=== PATIENT | female | born 1970 | race Caucasian/White ===

== ENCOUNTER 2022-02-26 12:07 | Outpatient (CLI) | payer BC, SELFPAY ==
--- NOTE | 2022-02-26 11:00 | DI.RAD_ITS ---
Exam(s) XR ELBOW RT COMPLETE EXAM: XR ELBOW RT COMPLETE CLINICAL HISTORY: RIGHT ELBOW F/U. TECHNIQUE: 2D digital imaging was performed. COMPARISON: No exams were available for comparison FINDINGS: Two views (AP and lateral) There is no evidence of fracture or joint effusion on this two view study. There is no swelling of t he olecranon bursa. Radial head and capitellum appear unremarkable. No obvious degenerative changes . Epicondyles appear unremarkable. Bone density is normal. No osseous lesions. There is no radiop aque foreign body. IMPRESSION: No significant radiograph findings in the right elbow on this two view study DATA REPOSITORY: RADIATION DOSE DELIVERED:
== END 2022-02-26 12:08 | disposition home or self-care (01) ==
LOC: DIORS 12:08
PROVIDERS: PCP Family Medicine; Referring Provider Family Medicine; Visit Provider Student in an Organized Health Care Education/Training Program
DX: M25.521 Pain in right elbow; M77.11 Lateral epicondylitis, right elbow
CPT/HCPCS: 73080

== ENCOUNTER 2022-04-02 02:56 | Outpatient (CLI) | payer BC, SELFPAY ==
[2022-04-02 11:24] LABS: Source Nasal/Nares
[2022-04-03 05:39] LABS: COVID-19 PCR Negative (Negative)
== END 2022-04-02 02:57 | disposition home or self-care (01) ==
PROVIDERS: PCP Family Medicine; Visit Provider Student in an Organized Health Care Education/Training Program
DX: Z20.822 Contact with and (suspected) exposure to COVID-19 (principal); Z01.818 Encounter for other preprocedural examination
CPT/HCPCS: 87635

== ENCOUNTER 2022-04-04 07:24 | Day surgery (SDC) | payer BC, SELFPAY ==
[2022-04-04] VITALS (9 sets, daily range): BP systolic 91–135; BP diastolic 41–90; PULSE 53–97; RESP 15–20; TEMP 36.1–36.7; O2SAT 96–100; BMI 28.1
[2022-04-04] MEDS: Lactated Ringers 1,000 ML 30 ML IV (07:55)
--- NOTE | 2022-04-04 08:39 | W.ANESPRE ---
General Info Date of Service Date Performed: 04/04/22 Height: 5 ft 2 in Weight: 69.8 kg Body Mass Index (BMI): 28.1 Surgical Procedure: Operation Date: 04/04/22 12:20 Proposed Procedure Side Surgeon p Elbow Arthroscopy w/Debridement Lateral Epicondylitis Right Kiran Harry MD Meds Allergies and Home Medications Allergies Allergy/AdvReac Type Severity Reaction Status Date / Time No Known Allergies Allergy Verified 04/04/22 07:47 Home Medication Medication Instructions Recorded galcanezumab-gnlm 120 mg/mL 120 mg subcut QMONTH 04/30/21 subcutaneous pen injector (Emgality Pen) Current Visit Medications: Current Medications Generic Name Dose Route Start Last Admin Trade Name Freq PRN Reason Stop Dose Admin Ringer's Solution 1,000 mls @ 30 mls/hr 04/04/22 06:00 04/04/22 07:55 IV 05/03/22 23:59 30 mls/hr INFUSION OC Administration Cefazolin Sodium/Dextrose 2 gm in 50 mls @ 100 mls/hr 04/04/22 06:00 Ancef Duplex IVPB 04/04/22 16:00 PREOP OC IV Miscellaneous Supplies 1 each 04/04/22 06:00 Iv Access IV 05/03/22 23:59 DIRECTED OC Sodium Chloride 0 ml 04/04/22 06:00 Normal Saline Flush 10 Ml Syr IV 05/03/22 23:59 PRN PRN Sodium Chloride 0 ml 04/04/22 06:00 Normal Saline 10 Ml Vial IJ 05/03/22 23:59 DIRECTED PRN Sterile Water 0 ml 04/04/22 06:00 Water,Injection,Sterile 10 Ml Vial IJ 05/03/22 23:59 DIRECTED PRN PFSH Active Problems Active Problems: Problem Status Onset Code Lateral epicondylitis, right elbow M77.11 No-show for appointment Z53.29 Medical History Medical History Migraine Medical History Comments:: Pt. stated she has a hard time regulating her body temperature coming out of anesthesia Surgical History Surgical History History of back surgery L3-S1 surgery Hx of hysterectomy Tobacco Smoking/Tobacco Use Status: Former Tobacco Use Alcohol Alcohol Intake: current Alcohol intake frequency: a few times a week Alcohol type: beer Substance Use Substance use: Never Substance use type: does not use Vital Signs and Lab Results Vital Signs Most Recent Vital Signs in EMR: Most Recent Vital Signs Temp Pulse Resp BP Pulse Ox 36.7 C 62 19 135/90 100 04/04/22 07:39 04/04/22 07:39 04/04/22 07:39 04/04/22 07:39 04/04/22 07:39 Lab Results Blood Type / Crossmatch: No Data to Display Complete Blood Count: No Data to Display Complete Metabolic Panel: No Data to Display Liver Function Panel: No Data to Display Coagulation Panel: No Data to Display Cardiac Panel: No Data to Display Arterial Blood Gas: No Data to Display Venous Blood Gas: No Data to Display Pancreas Panel: No Data to Display Thyroid Panel: No Data to Display Infectious Disease: Coronavirus (COVID-19)(PCR) Negative (Negative) 04/02/22 09:02 Coronavirus 2019 Source Nasal/Nares 04/02/22 09:02 Blood Cultures: No Data to Display Toxicology Panel: No Data to Display Panel: No Data to Display Anesthesia Assessment and Plan Anesthesia History Personal History: No History of Anesthesia Complications Family History: No Family History of Anesthesia Complications Exercise Tolerance Exercise Tolerance: Metabolic Equivalents>4 Pertinent Negatives Pertinent Negatives: No Symptoms of GERD, No Major Cardiovascular Symptoms or Complaints, No Major Pulmonary Symptoms or Complaints and No History of CVA/TIA Cardiac & Pulmonary Exam Cardiac Exam: Normal S1/S2 Heart Sounds Pulmonary Exam: Clear Bilateral Breath Sounds Implantable Cardiac Device Does patient have a Pacemaker or an ICD?: No Airway Exam Known Difficult Airway: No Mallampati Class: 2 Mouth Opening: Normal (> 3cm) Thyromental Distance: Greater than 3 cm Neck Range of Motion: Full ROM Neck Circumference: Normal Teeth Condition: Normal Dentition ASA Classification ASA Score: ASA 2 Emergency Case?: No NPO Status NPO Status: NPO Clears >2 hours, Solids >8 hours Status Status: History of Hysterectomy Anesthesia Plan Resuscitation Status: Full Code Anesthesia Technique: General Anesthesia Airway Planned: Endotracheal Tube Pain Management: Surgeon and patient request nerve block Monitors Used: Standard Monitors
--- NOTE | 2022-04-04 09:38 | W.ANESNERVE ---
Nerve Block Single Injection Procedure Date and Time Date Performed: 04/04/22 Procedure Start: 09:32 Location Where Procedure Performed Procedure Location: Day Surgery Unit Reason Performed: Postoperative Analgesia Requesting Provider: Kiran Harry Timeout Performed Timeout Performed: Yes Monitoring Used ECG, Blood Pressure, SpO2, ETCO2 and See EMR for corresponding vital signs Sterility Sterility: Hand Hygiene, Surgical Cap, Surgical Mask, Sterile Gloves, Sterile Drape/Sheet and Chlorhexidine Sedation Given During Procedure Sedation Given (Indicate Dose Given): Versed IV Dose:: 2 mg Patient Mental Status Patient Mental Status: Sedate with meaningful communication Nerve Block 1st Nerve Block: Laterality: Right Block Type: Supraclavicular Needle / Catheter Used: 100mm SonoPlex II Local Anesthetic Bolus (Indicate Dose Given): Lidocaine used for local infiltration of skin, Injected in 3-5ml increments after negative blood aspiration and Bupivacaine 0.5% Dose:: 15 ml Additives (Indicate Dose Given): Precedex Dose:: 70 mcg Ultrasound: Sterile probe cover and gel used Ultrasound Image Saved?: Yes Nerve Stimulator: Not Used Paresthesia: None Procedure Tolerated: No Complications and Patient tolerated well Procedure Outcome: Successful Performed By: Chelle Ramos
[2022-04-04] MEDS: ceFAZolin 2 GM/50 ML BAG IVPB (11:30)
[2022-04-04] MEDS: EPINEPHrine 30 MG/30 ML VIAL (12:02)
[2022-04-04] MEDS: Bupivacaine 0.5% Pres-Free W/EPI 10 ML VIAL (12:36)
--- NOTE | 2022-04-04 12:47 | W.PM.DSUDISC ---
Discharge Plan Disposition Patient Disposition: HOME Condition: Stable Discharge Details Reason For Visit: Right elbow surgery Attending Provider: Kiran Harry Primary Care Provider: Teresa You Home Meds and New Rx's Prescriptions: New naproxen 250 mg tablet 250 - 500 mg PO BID PRNQty: 30 0RF Rx Instructions: take with a meal oxycodone 5 mg tablet 5 - 10 mg PO Q4H MDD 30 mg PRN (Reason: moderate to severe pain) Qty: 12 0RF aspirin 81 mg tablet,delayed release (DR/EC) 81 mg PO DAILY 7 Days Qty: 7 0RF Continued Emgality Pen 120 mg/mL pen injector 120 mg subcut QMONTH Discharge Instructions Additional Instructions: Surgery: Right elbow arthroscopy with debridement lateral epicondylitis Activity: Weightbearing as tolerated. Advance range of motion as comfort allows. Important to restore full elbow extension as soon as possible. Recommend avoiding repetitive activities and heavy lifting for 6-8 weeks. A physical therapy prescription will be sent electronically to start in 2 to 3 weeks. Prescriptions: Aspirin 81 mg take 1 daily to prevent a blood clot for 7 days Naproxen 250 mg take 1-2 every 12 hours with a meal as needed for moderate pain Oxycodone 5 mg take 1-2 every 4-6 hours as needed for severe pain You may use ssqu-ilk-[id number] Tylenol (acetaminophen) as needed for mild pain. These pain medications may be taken all at once or in different combinations as needed. Also, recommend Colace (docusate) as a stool softener as surgery and pain medicine cause constipation. You may try [id number]-gdj-[id number] diphenhydramine (Benadryl) 25-50 mg nightly as a sleep aid Dressings: Leave dressing in place for 3 days. May then remove and leave open to air or cover incisions with Band-Aids. May shower after 5 days. Follow-up: 10-[address] Harry Let us know right away if you develop any redness, drainage, fevers, chest pain, or trouble breathing. Do not drink alcohol or drive for at least 24 hours after anesthesia. Please call the office during business hours with any questions or concerns. Discharge Orders Discharge Orders: Discharge Order (Routine); Ordered 04/04/22 Ordered By: Kiran Harry DS: Diagnosis Discharge Diagnosis (1) Lateral epicondylitis, right elbow: Status: Acute
--- NOTE | 2022-04-04 12:48 | ROE_ITS ---
Operative Note Operative Note DATE OF PROCEDURE: 04/04/22 PRE-OP DIAGNOSIS: Right elbow lateral epicondylitis POST-OP DIAGNOSIS: same PROCEDURE: Right elbow arthroscopy with debridement lateral epicondylitis, CPT # 24441 SURGEON: Kiran Harry RESIDENT SERVICES SUPERVISOR: None None ANESTHESIA TYPE: General LMA/ETT and Primary Nerve Block Refer to Anesthesia Record Patient was transported to: PACU Indications: Please see complete medical record for details. Findings: Mild anterior and lateral synovitis. Intact cartilaginous surfaces. Thickened ECRB and to a lesser extent ECRL. Procedure Description: In the operating room, general anesthesia was induced. The patient was positioned lateral on the operating room table. All bony prominences were well- padded. Preoperative antibiotics were administered. The elbow was prepped and draped in the usual sterile fashion. The correct patient, procedure, and side of the procedure were all verified prior to incision. 20 cc of normal saline was used to insufflate the right elbow joint through the lateral soft spot. The jaron and spread technique was used to establish the proximal anteromedial portal. A diagnostic arthroscopy of the anterior elbow compartment was performed with findings noted above. A 18-gauge needle needle was used to localize a modified direct lateral working portal for lateral epicondyle and common extensor origin debridement. The needle was used to set the superior and inferior margins of the resection as well as free up disease tissue from its bony origin. A scalpel was used to jaron the skin followed by [place] blade to meticulously release the ECRB[ as well as adjacent ECRL tendon from the lateral epicondyle]. Care was taken to work anterior to the midline of the radial head to preserve the radial collateral ligament. A 3.5 mm shaver was used to debride approximately 1 cm of diseased tendon and lightly abrade lateral epicondyle bony origin. Shaver was also used to remove the small amount of lateral and anterior synovitis. The elbow was drained of arthroscopic fluid. The medial and lateral portals were closed using 3-0 Monocryl in a buried interrupted fashion. Incisions covered with Steri-Strips. Xeroform pieces were applied over both incisions and covered with dry 4 x 4 gauze. The radial pulse was 2+. The elbow was gently compressed with marci bandage. The patient awoke from anesthesia without complication and was transferred to the recovery room in stable fashion.
--- NOTE | 2022-04-04 13:24 | W.ANESPOSTOP ---
Postoperative Evaluation Date, Time and Location Date Performed: 04/04/22 Time Performed: 13:12 Patient Location: PACU Vital Signs Most Recent Imported Vital Signs: Most Recent Vital Signs Temp Pulse Resp BP Pulse Ox 36.4 C L 68 15 103/61 96 04/04/22 13:07 04/04/22 13:07 04/04/22 13:07 04/04/22 13:07 04/04/22 13:07 Pain Score Most Recent Pain Score: Most Recent Pain Score Pain Level 0 04/04/22 13:07 Assessment Mental Status: Awake (Alert & Oriented to Patient Baseline) Airway and Respiratory Function: Patent airway with normal (patient baseline) respiratory exam Cardiovascular Function: Hemodynamically Stable Hydration Status: Adequately Hydrated Nausea & Vomiting: No Nausea or Vomiting Pain: Pt. Denies Any Pain Peripheral Nerve Block: Regional nerve block not resolved at time of post operative discharge
== END 2022-04-04 14:10 | disposition home or self-care (01) ==
PROVIDERS: PCP Family Medicine; Visit Provider Student in an Organized Health Care Education/Training Program
PROC: (CPT 29830; principal; 2022-04-04 12:00)
DX: M77.11 Lateral epicondylitis, right elbow (principal)
CPT/HCPCS: 29837; 76942; J0690; J1100; J1885; J2250; J2405

== ENCOUNTER 2023-04-18 08:43 | Outpatient (CLI) | payer BC, SELFPAY ==
--- NOTE | 2023-04-18 08:00 | DI.RAD_ITS ---
Exam(s) XR KNEE RT 4V AP,LAT,SMITH,PAT EXAM: XR KNEE RT 4V AP,LAT,SMITH,PAT CLINICAL HISTORY: RIGHT KNEE PAIN. TECHNIQUE: 2D digital imaging was performed. Four views. COMPARISON: No exams were available for comparison FINDINGS: BONES: No acute fracture is present. No bony destructive lesion is seen. JOINTS: The knee is normally aligned. No joint effusion is seen. The joint spaces are maintained. No significant periarticular spurring. SOFT TISSUE: Normal. IMPRESSION: Unremarkable radiographs of the right knee. DATA REPOSITORY: RADIATION DOSE DELIVERED:
== END 2023-04-18 08:44 | disposition home or self-care (01) ==
LOC: DIORS 08:44
PROVIDERS: PCP Family Medicine; Referring Provider Family Medicine; Visit Provider Physician Assistant
DX: M25.561 Pain in right knee (principal)
CPT/HCPCS: 73564

== ENCOUNTER 2023-11-07 10:47 | Day surgery (SDC) | payer BC, SELFPAY ==
[2023-11-07] VITALS (10 sets, daily range): BP systolic 139–167; BP diastolic 78–118; PULSE 68–89; RESP 16–20; TEMP 36.4–37; O2SAT 96–100; BMI 28.7
--- NOTE | 2023-11-07 07:27 | W.PM.DSUDISC ---
Date of service: 11/07/23 Time of Service: 14:00 Discharge Plan Disposition Patient Disposition: Home Condition: Stable Discharge Details Attending Provider: Kiran Harry Primary Care Provider: [place] Home Meds and New Rx's Prescriptions: New aspirin 81 mg capsule 81 mg PO DAILY 14 Days Qty: 14 0RF naproxen 250 mg tablet 250 - 500 mg PO BID PRN (Reason: moderate pain and swelling) Qty: 40 0RF oxycodone 5 mg tablet 5 - 10 mg PO .q4-6h PRN (Reason: severe pain) Qty: 5 0RF Continued Emgality Pen 120 mg/mL pen injector 120 mg subcut QMONTH sennosides-docusate sodium [Senokot-S] 8.6-50 mg tablet 1 tab-cap PO QHS Discharge Instructions Additional Instructions: Surgery: Right knee arthroscopy with medial meniscus root repair and trochlear chondroplasty Activity: Toe-touch weightbearing with crutches for 6 weeks followed by progressive weightbearing with crutches another 2 weeks. Seated/ non-weight bearing flexion 0-90 degrees maximum for 6 weeks. 120 degrees maximum flexion for 8 weeks. Spin/bike after 10 weeks. No weighted deeper flexion (squats, lunges) for 12 weeks. A physical therapy prescription will be sent electronically to start in 2 to 3 weeks. Prescriptions: Aspirin 81 mg take 1 daily to prevent a blood clot for 14 days Naproxen 250 mg take 1-2 every 12 hours with a meal as needed for moderate pain Oxycodone 5 mg take 1-2 every 4-6 hours as needed for severe pain You may use [id number]-gzi-ecpvttx Tylenol (acetaminophen) as needed for mild pain. These pain medications may be taken all at once or in different combinations as needed. Also, recommend Colace (docusate) as a stool softener as surgery and pain medicine cause constipation. You may try vqxg-zep-hqphrvj diphenhydramine (Benadryl) 25-50 mg nightly as a sleep aid Dressings: Leave dressing in place for 3 days. May then remove and leave open to air or cover incisions with Band-Aids. Leave the sticky Steri-Strips in place until they fall off or remove them after you shower. May shower after 5 days. Follow-up: 10-[address] Harry You may take off the leg compression stockings this evening at home. You may also leave them on a few days longer if you have a history of leg swelling or edema. Let us know right away if you develop any redness, drainage, fevers, chest pain, or trouble breathing. Do not drink alcohol or drive for at least 24 hours after anesthesia. Please call the office during business hours with any questions or concerns. Stand Alone Forms: Anesthesia Discharge Inst., [facility] (DS[facility]) Discharge Orders Discharge Orders: Discharge Order (Routine); Ordered 11/07/23 Ordered By: Misty Cho DS: Diagnosis Discharge Diagnosis (1) Tear of medial meniscus of right knee: Status: Acute (2) Chondromalacia of right knee: Status: Acute
--- NOTE | 2023-11-07 07:38 | W.PM.OP ---
Date of service: 11/07/23 Time of Service: 13:00 Operative Note Operative Note DATE OF PROCEDURE: 11/07/23 PRE-OP DIAGNOSIS: Right knee 1. Medial meniscus root tear 2. Chondromalacia POST-OP DIAGNOSIS: same PROCEDURE: Right knee 1. Medial meniscus root repair, CPT #54183 2. Chondroplasty, CPT #85917: Trochlea and medial femoral condyle SURGEON: Kiran Harry NEON GLASS BLOWER: Misty Cho ANESTHESIA TYPE: Local By Surgeon and General LMA/ETT Refer to Anesthesia Record ESTIMATED BLOOD LOSS: 5 PATHOLOGY: none sent TOURNIQUET TIME: 0 Patient was transported to: PACU Patient's condition: stable Indications: Please see complete medical record for details. Findings: Exam under anesthesia: Full range of motion, no instability Arthroscopic findings: Moderate patellofemoral, anterior, and suprapatellar synovitis. Moderate generalized medial compartment chondromalacia with a few areas of focal moderately high-grade chondromalacia medial femoral condyle and central trochlea. Complete medial meniscus root tear with extruded posterior horn medial meniscus. Remainder of medial meniscus good quality and intact. Intact ACL. Intact lateral compartment. Procedure Description: In the operating room, general anesthesia was induced. The patient was positioned supine on the operating room table. All bony prominences were well-padded. Preoperative antibiotics were administered. The knee was prepped and draped in the usual sterile fashion. The correct patient, procedure, and side of the procedure were all verified prior to incision. Exam under anesthesia was performed. 10 cc of 0.25% bupivacaine containing epinephrine was infiltrated about the planned anteromedial and anterolateral knee arthroscopy portals. The portals were established and a complete diagnostic arthroscopy was performed with relevant findings detailed above. The mechanical shaver was used to remove abundant inflamed synovium from the patellofemoral and anterior areas. The shaver was then used to lightly debride and resect loose cartilage edges and flaps in the central trochlea as well as the medial femoral condyle. Despite the moderate medial chondromalacia, the meniscus root tear was appropriate for repair, and repair chosen to optimize longevity of this knee given the relative young age, activity level, and lack of medial compartment joint space narrowing. The root was probed and debrided. The appropriate site for repair was decorticated lightly with mechanical shaver and then prepared with the meniscal rasp, which was also used to abrade the torn free edge of the posterior horn of meniscus. The meniscus was reduced to the prepared area after freed up from slight posterior adhesions. Passport cannula inserted in the anterior medial portal 8 x 2 mm. The meniscus root adjustable guide was brought into the knee through the anterior medial portal, directed into the correct location, and small pretibial incision made to accommodate the drill guide down to bone. Initial drilling done with the flip cutter exited too central so the guide was replaced, redirecting the drill to the correct location, and drilling completed. The pretibial drill tunnel was maintained with the step guide. The knee scorpion was then used to place 0.9 mm FiberLink about the posterior horn of the medial meniscus next to the tear and a second link around the free edge of the tear. The 2-0 fiber stick was then shuttled through the tibial drill hole, retrieved out the AM portal, and used to shuttle the FiberLink repair sutures out the pretibial incision. With modest tension on the repair sutures, there was excellent reduction of the meniscus to the prepared root site and more appropriate posterior horn position in the medial compartment of the knee. The small pretibial incision was extended slightly distally, soft tissue spread to expose the tibia cortex. About 50% [address] way from the anterior to medial margin the 2.5 mm Synthes drill was used to a depth of 20 mm followed by a 3.5 mm drill and then the SwiveLock punches and tap. The repair sutures were loaded on the suture anchor, which deployed with excellent fixation strength and appropriate tension on the repair. Care was taken to ensure the suture anchor was buried and not prominent. The arthroscope was returned to the knee and the meniscus repair visualized completed. The knee was copiously irrigated with arthroscopic fluid until there was a clear effluent before being drained of all fluid. The repair sutures were cut. The anteromedial, anterolateral portals, and pretibial incision were closed in 3-0 Monocryl in a buried interrupted fashion. An additional 15 cc of 0.25% bupivacaine with epinephrine was infiltrated about the portals, medial joint line, and pretibial incision. Mastisol, Steri-Strips, and 4 x 4 gauze were applied over the incisions followed by sterile soft roll. The knee was then wrapped gently with an BUBBA comressive bandage. The patient awoke from anesthesia without complication and was transferred to the recovery room in a stable condition.
--- NOTE | 2023-11-07 11:44 | W.ANESPRE ---
General Info Date of Service Date Performed: 11/07/23 Height: 5 ft 3 in Weight: 73.5 kg Body Mass Index (BMI): 28.7 Surgical Procedure: Operation Date: 11/07/23 13:10 Proposed Procedure Side Surgeon p Knee Arthroscopy w Medial Meniscal Repair vs Meniscectomy w/ any indicated Chondral and Synovial Surgery Right Kiran Harry MD Meds Allergies and Home Medications Allergies Allergy/AdvReac Type Severity Reaction Status Date / Time No Known Allergies Allergy Verified 11/07/23 11:13 Home Medication Medication Instructions Recorded galcanezumab-gnlm 120 mg/mL 120 mg subcut QMONTH 04/30/21 subcutaneous pen injector (Emgality Pen) sennosides 8.6 mg-docusate sodium 1 tab-cap PO QHS 11/07/23 50 mg tablet (Senokot-S) Current Visit Medications: Current Medications Generic Name Dose Route Start Last Admin Trade Name Freq PRN Reason Stop Dose Admin Ringer's Solution 1,000 mls @ 30 mls/hr 11/07/23 06:00 IV 11/07/23 23:59 INFUSION OC Cefazolin Sodium/Dextrose 2 gm in 50 mls @ 100 mls/hr 11/07/23 06:00 Ancef Duplex IVPB 11/07/23 23:59 PREOP OC IV Miscellaneous Supplies 1 each 11/07/23 06:00 Iv Access IV 11/07/23 23:59 DIRECTED OC Oxycodone HCl 0 mg 11/07/23 07:26 Oxycodone 5 Mg Tab PO 12/07/23 07:25 Q3H PRN PRN Pain Sodium Chloride 0 ml 11/07/23 06:00 Normal Saline Flush 10 Ml Syr IV 11/07/23 23:59 PRN PRN Sodium Chloride 0 ml 11/07/23 06:00 Normal Saline 10 Ml Vial IJ 11/07/23 23:59 DIRECTED PRN Sterile Water 0 ml 11/07/23 06:00 Water,Injection,Sterile 10 Ml Vial IJ 11/07/23 23:59 DIRECTED PRN PFSH Active Problems Active Problems: Problem Status Onset Code Tear of medial meniscus of right knee S83.241A Internal derangement of right knee M23.91 Medical History Medical History Migraine No-show for appointment Medical History Comments:: Pt. stated she has a hard time regulating her body temperature coming out of anesthesia Surgical History Surgical History H/O varicose vein stripping History of back surgery L3-S1 surgery Hx of hysterectomy Lateral epicondylitis, right elbow Steroid injection: 04/30/2021, 11/22/2021 S/P scopic debridement: 04/04/2022 Tobacco Smoking/Tobacco Use Status: Former Tobacco Use Alcohol Alcohol Intake: current Alcohol intake frequency: a few times a week Alcohol type: beer Substance Use Substance use: Never Substance use type: does not use Details: alcohol: t-7 Vital Signs and Lab Results Vital Signs Most Recent Vital Signs in EMR: Most Recent Vital Signs Temp Pulse Resp BP Pulse Ox 37.0 C 81 16 156/100 H 98 11/07/23 11:20 11/07/23 11:20 11/07/23 11:20 11/07/23 11:20 11/07/23 11:20 Lab Results Blood Type / Crossmatch: No Data to Display Complete Blood Count: No Data to Display Complete Metabolic Panel: No Data to Display Liver Function Panel: No Data to Display Coagulation Panel: No Data to Display Cardiac Panel: No Data to Display Arterial Blood Gas: No Data to Display Venous Blood Gas: No Data to Display Pancreas Panel: No Data to Display Thyroid Panel: No Data to Display Infectious Disease: No Data to Display Blood Cultures: No Data to Display Toxicology Panel: No Data to Display Panel: No Data to Display Anesthesia Assessment and Plan Anesthesia History Personal History: Other Family History: No Family History of Anesthesia Complications Exercise Tolerance Exercise Tolerance: Metabolic Equivalents>4 Cardiac & Pulmonary Exam Cardiac Exam: Normal S1/S2 Heart Sounds Pulmonary Exam: Clear Bilateral Breath Sounds Implantable Cardiac Device Does patient have a Pacemaker or an ICD?: No Airway Exam Known Difficult Airway: No Mallampati Class: 1 Mouth Opening: Normal (> 3cm) Thyromental Distance: Greater than 3 cm Neck Range of Motion: Full ROM Neck Circumference: Normal Teeth Condition: Normal Dentition ASA Classification ASA Score: ASA 2 Emergency Case?: No NPO Status NPO Status: NPO Clears >2 hours, Solids >8 hours Status Status: Not Relevant due to Medical History Anesthesia Plan Resuscitation Status: Full Code Anesthesia Technique: General Anesthesia Airway Planned: LMA Monitors Used: Standard Monitors Preoperative Comments:: 52 yo female for knee scope. Sig PMHx: migraines. Previous Anes: - mac 3 grade 1, easy mask. has woken from from anesthesia very cold before.
[2023-11-07] MEDS: Lactated Ringers 1,000 ML 30 ML IV (12:00)
[2023-11-07] MEDS: ceFAZolin 2 GM/50 ML BAG IVPB (12:56)
[2023-11-07] MEDS: Normal Saline 100 ML (13:26)
[2023-11-07] MEDS: Tranexamic Acid 1,000 MG/10 ML VIAL 1000 MG (13:26)
[2023-11-07] MEDS: Bupivacaine 0.25% Pres-Free 30 ML VIAL (13:45)
[2023-11-07] MEDS: EPINEPHrine 10 MG/10 ML ML (13:46)
[2023-11-07] MEDS: fentaNYL 100 MCG/2 ML VIAL IVP (14:53)
[2023-11-07] MEDS: oxyCODONE 5 MG TAB PO (15:57)
--- NOTE | 2023-11-07 16:47 | W.ANESPOSTOP ---
Postoperative Evaluation Date, Time and Location Date Performed: 11/07/23 Time Performed: 16:47 Patient Location: Day Surgery Unit Vital Signs Most Recent Imported Vital Signs: Most Recent Vital Signs Temp Pulse Resp BP Pulse Ox 36.5 C 74 16 150/86 H 98 11/07/23 15:24 11/07/23 15:24 11/07/23 15:24 11/07/23 15:24 11/07/23 15:24 Pain Score Most Recent Pain Score: Most Recent Pain Score Pain Level 5 11/07/23 15:24 Assessment Mental Status: Awake (Alert & Oriented to Patient Baseline) Airway and Respiratory Function: Patent airway with normal (patient baseline) respiratory exam Cardiovascular Function: Hemodynamically Stable Hydration Status: Adequately Hydrated Nausea & Vomiting: No Nausea or Vomiting Pain: Pain is tolerable per patient Peripheral Nerve Block: Patient did not receive a nerve block
== END 2023-11-07 16:49 | disposition home or self-care (01) ==
LOC: SUR 10:48
PROVIDERS: PCP Registered Nurse Critical Care Medicine; Visit Provider Student in an Organized Health Care Education/Training Program
PROC: (CPT 29882; principal; 2023-11-07 13:00)
DX: S83.241A Other tear of medial meniscus, current injury, right knee, initial encounter (principal); M94.261 Chondromalacia, right knee
CPT/HCPCS: 29882; J0131; J0665; J0690; J1100; J1885; J2001; J2250; J2270; J2405; J2704; J3010